=== PATIENT | female | born 1985 | race Caucasian/White ===

== ENCOUNTER 2023-09-16 16:25 | Outpatient (CLI) | payer OTHER, SELFPAY | END 2023-09-16 16:26 | disposition home or self-care (01) | LOC: AMB 09-21 12:40 | PROVIDERS: Visit Provider Emergency Medicine | DX: R56.9 Unspecified convulsions (principal); E16.2 Hypoglycemia, unspecified | CPT/HCPCS: A0425; A0428 ==